=== PATIENT | female | born 1990 | race African-American/Black ===

== ENCOUNTER 2024-09-05 06:10 | Inpatient (IN) | payer BC, SELFPAY ==
[2024-09-05 06:30] VITALS: BMI 27.1
[2024-09-05 06:38] VITALS: BP 104/62; BMI 27.1
[2024-09-05] MEDS: LR 1000 IV ×3 (07:08→20:11)
[2024-09-05 07:13] LABS: Hematocrit 30.5 % (37.0-47.0); Hemoglobin 10.4 g/dL (12.0-16.0); Mean Corp Hgb Conc. 34.1 g/dL (33.0-37.0); Mean Platelet Volume 10.5 fL (7.4-10.4); Platelet Count 227 10^3/uL (130-400); Red Blood Cell Count 3.35 10^6/uL (4.20-5.40); White Blood Cell Count 5.5 10^3/uL (4.8-10.8)
[2024-09-05] MEDS: TYLENOL 1000 MG PO (07:41)
[2024-09-05] MEDS: BICITRA 30 ML PO (07:44)
[2024-09-05] MEDS: ANCEF 10 IV (08:12)
[2024-09-05] MEDS: TORADOL 15 MG IV ×3 (10:30→22:50)
[2024-09-05] MEDS: ZOFRAN 4 MG IV ×2 (11:34→20:11)
[2024-09-05] MEDS: PITOCIN 30 UNITS/NSS 500 ML IV (13:56)
[2024-09-05] MEDS: LR 500 IV (21:02)
[2024-09-06] MEDS: ZOFRAN 4 MG IV (00:59)
[2024-09-06] MEDS: TORADOL 15 MG IV (04:10)
[2024-09-06 05:14] LABS: Hematocrit 27.7 % (37.0-47.0); Hemoglobin 9.2 g/dL (12.0-16.0); Mean Corp Hgb Conc. 33.2 g/dL (33.0-37.0); Mean Corpuscular Hgb 31.1 pg (27.0-31.0); Mean Corpuscular Volume 93.6 fL (81.0-99.0); Mean Platelet Volume 11.1 fL (7.4-10.4); Platelet Count 201 10^3/uL (130-400); Red Blood Cell Count 2.96 10^6/uL (4.20-5.40); Red Cell Dist. Width 13.9 % (11.5-14.5); White Blood Cell Count 8.9 10^3/uL (4.8-10.8)
[2024-09-06] MEDS: PRENATAL PLUS 1 TABLET PO (08:40)
[2024-09-06] MEDS: FEOSOL PO ×2 (08:40→08:42)
[2024-09-06] MEDS: TYLENOL 650 MG PO ×2 (12:37→18:20)
[2024-09-06] MEDS: MOTRIN 600 MG PO ×2 (12:38→18:21)
[2024-09-06] MEDS: SENOKOT-S 1 TABLET PO (12:40)
--- NOTE | 2024-09-06 12:50 | W.PN.ANS.POP ---
Anesthesia Post Operative
- Anesthesia Post Op Note
Vital Signs Stable-See Nursing Note: Yes
Airway Patent: Yes
Adequate Pain Control: Yes
Change in Mental Status: No
Current Postoperative Nausea & Vomiting: No
Anesthesia Complications: No
General Anesthetic Recall: No
Unplanned Admission: No
Post Op Hydration Adequate: Yes
- -
Pt doing well as per RN, N/V from yesterday now resolved.
[2024-09-06] MEDS: PERCOCET 5/325 1 TABLET PO (20:04)
[2024-09-06] MEDS: NON-FORMULARY ITEM 1.2 GRAMS PO (22:19)
[2024-09-07] MEDS: MOTRIN 600 MG PO ×4 (00:21→21:08)
[2024-09-07] MEDS: PERCOCET 5/325 1 TABLET PO ×4 (02:05→21:09)
[2024-09-07] MEDS: PRENATAL PLUS 1 TABLET PO (07:59)
[2024-09-07] MEDS: SENOKOT-S 1 TABLET PO (09:16)
[2024-09-07] MEDS: FEOSOL PO (12:28)
[2024-09-07] MEDS: NON-FORMULARY ITEM PO (21:08)
[2024-09-08] MEDS: PERCOCET 5/325 1 TABLET PO ×2 (03:40→09:44)
[2024-09-08] MEDS: MOTRIN 600 MG PO ×2 (03:40→09:43)
[2024-09-08] MEDS: PRENATAL PLUS 1 TABLET PO (09:43)
[2024-09-08] MEDS: FEOSOL 325 MG PO (09:43)
[2024-09-09 14:27] LABS: Syphilis/T. pallidum Ab Reflex Negative (Negative)
== END 2024-09-08 12:30 | disposition home or self-care (01) | DRG 784 ==
LOC: LDRP 06:10
PROVIDERS: ADMITTING PHYSICIAN Obstetrics & Gynecology
PROC: 10D00Z1 Extraction of Products of Conception, Low, Open Approach (ICD-10-PCS; 2024-09-05)
PROC: 0UT70ZZ Resection of Bilateral Fallopian Tubes, Open Approach (ICD-10-PCS; 2024-09-05)
PROC: 0HB7XZZ Excision of Abdomen Skin, External Approach (ICD-10-PCS; 2024-09-05)
DX: O34.211 Maternal care for low transverse scar from previous cesarean delivery (principal); K51.90 Ulcerative colitis, unspecified, without complications; N85.8 Other specified noninflammatory disorders of uterus; O99.72 Diseases of the skin and subcutaneous tissue complicating childbirth; L91.0 Hypertrophic scar; Z30.2 Encounter for sterilization; Z3A.39 39 weeks gestation of pregnancy; Z37.0 Single live birth; O99.214 Obesity complicating childbirth; O99.62 Diseases of the digestive system complicating childbirth
CPT/HCPCS: 88302; 36415; 85027; 86780; 86850; 86900; 86901; C1765